=== PATIENT | female | born 1955 | race Caucasian/White ===

== ENCOUNTER → 2020-02-21 | Outpatient (CLI) | payer MEDICARE, OTHER ==
[2020-02-21 10:03] LABS: BILIRUBIN,TOTAL 0.6 MG/DL (0.1-1.0); CALCIUM 9.2 MG/DL (8.5-10.1); CREATININE SERUM 1.01 MG/DL (0.60-1.30); POTASSIUM 4.6 MMOL/L (3.6-5.0); TOTAL PROTEIN 6.9 GM/DL (6.4-8.2)
[2020-02-21 10:04] LABS: ALBUMIN 4.2 GM/DL (3.2-4.5)
== END ==
LOC: LAB FS 09:13
PROVIDERS: ATTEND Family Medicine
DX: I10 Essential (primary) hypertension (principal)
CPT/HCPCS: 36415; 80053; 80061

== ENCOUNTER → 2020-02-24 | Outpatient (CLI) | payer MEDICARE, OTHER | LOC: LAB FS 15:08 | PROVIDERS: ATTEND Family Medicine | DX: Z11.59 Encounter for screening for other viral diseases (principal); Z87.898 Personal history of other specified conditions; Z53.8 Procedure and treatment not carried out for other reasons | CPT/HCPCS: 36415; 80051; 86769 ==

== ENCOUNTER → 2021-01-04 | Outpatient (CLI) | payer MEDICARE, OTHER ==
[2021-01-04 09:05] LABS: SODIUM 140 MMOL/L (135-145)
[2021-01-04 09:06] LABS: ALANINE AMINOTRANSFERASE 19 U/L (0-55); ALBUMIN 4.1 GM/DL (3.2-4.5); ALKALINE PHOSPHATASE 92 U/L (40-136); BILIRUBIN,TOTAL 0.5 MG/DL (0.1-1.0); BUN/CREATININE RATIO 11; CALCIUM 8.9 MG/DL (8.5-10.1); CARBON DIOXIDE 26 MMOL/L (21-32); CHLORIDE 105 MMOL/L (98-107); CREATININE SERUM 0.92 MG/DL (0.60-1.30); GFR ESTIMATED > 60; GLUCOSE 126 MG/DL (70-105); POTASSIUM 4.3 MMOL/L (3.6-5.0); TOTAL PROTEIN 6.7 GM/DL (6.4-8.2)
[2021-01-04 17:51] LABS: TRIGLYCERIDES 108 MG/DL (<150); VLDL CHOLESTEROL 22 MG/DL (5-40)
[2021-01-04 17:56] LABS: CHOLESTEROL 157 MG/DL (< 200)
[2021-01-04 17:57] LABS: HDL CHOLESTEROL 46 MG/DL (40-60)
== END ==
LOC: LAB FS 08:08
PROVIDERS: ATTEND Family Medicine
DX: E78.2 Mixed hyperlipidemia (principal); R63.5 Abnormal weight gain
CPT/HCPCS: 36415; 80053; 80061; 83036; 84443

== ENCOUNTER 2021-03-04 05:42 | Outpatient (RCR) | payer MEDICARE, OTHER ==
[~2021-03-04] VITALS: Ht 162.6 cm; Wt 97.9 kg
[2021-03-04] MEDS ORDERED: ASPI-999 PO (12:05)
[2021-03-04] MEDS ORDERED: ATOR10TA66 PO (12:06)
[2021-03-04] MEDS ORDERED: METO-333 PO (12:06)
[2021-03-04] MEDS ORDERED: LORA10TA7 PO (12:06)
== END 2021-03-11 15:42 | disposition home or self-care (01) ==
LOC: PREOP 05:42
PROVIDERS: ATTEND Surgery
DX: Z01.818 Encounter for other preprocedural examination (principal)

== ENCOUNTER → 2021-03-12 | Outpatient (CLI) | payer MEDICARE, OTHER ==
[~2021-03-12] MED LIST: ASPI-999 PO; ATOR10TA66 PO; LORA10TA7 PO; METO-333 PO; SUCR1TAB36 PO
== END ==
LOC: LAB FS 10:08
PROVIDERS: ATTEND Surgery
DX: Z01.812 Encounter for preprocedural laboratory examination (principal); Z12.11 Encounter for screening for malignant neoplasm of colon; K29.70 Gastritis, unspecified, without bleeding; Z20.822 Contact with and (suspected) exposure to COVID-19
CPT/HCPCS: 87636

== ENCOUNTER 2021-03-15 12:19 | Day surgery (SDC) | payer MEDICARE, OTHER ==
[~2021-03-15] VITALS: Ht 162 cm; Wt 97.9 kg
[~2021-03-15 12:19] MED LIST changes: -SUCR1TAB36 PO
[2021-03-15 12:30] VITALS: BP 122/79
[2021-03-15] MEDS ORDERED: LACTATED RINGERS 1,000 ML IV ONE (12:36)
[2021-03-15] MEDS ORDERED: HURRICAINE EXT TUBE (BENZOCAINE) ONE (12:51)
[2021-03-15] MEDS ORDERED: MIDAZOLAM 2 MG/2 ML (VERSED) VIAL ONE (12:59)
[2021-03-15] MEDS ORDERED: proPOfol 200 MG/20 ML (DIPRIVAN) VIAL IV ONE (12:59)
[2021-03-15] MEDS ORDERED: HURRICAINE EXT TUBE (BENZOCAINE) XX ONE (13:00)
[2021-03-15] MEDS ORDERED: LACTATED RINGERS 1,000 ML IV STA (13:55)
[2021-03-15 14:10] VITALS: BP 155/70
--- NOTE | 2021-03-15 14:32 | Anesthesia-General Post-Op ---
MAC Patient Condition Mental Status/LOC: Same as Preop Cardiovascular: Satisfactory Nausea/Vomiting: Absent Respiratory: Satisfactory Pain: Controlled Complications: Absent Post Op Complications Complications None Follow Up Care/Instructions Patient Instructions None needed. Anesthesiology Discharge Order Discharge Order Patient is doing well, no complaints, stable vital signs, no apparent adverse anesthesia problems. RICH CRISTOBAL DO Mar 15, 2021 14:32
--- NOTE | 2021-03-15 14:39 | Progress Note-Post Operative ---
Post-Operative Progess Note Surgeon (s)/Donor Relations Officer (s) Surgeon ANKIT LOMBARDO DO Donor Relations Officer: none Pre-Operative Diagnosis +cologuard, gastritis Post-Operative Diagnosis Duodenitis Gastritis Hiatal Hernia Polyps diverticula int hemorrhoids Procedure & Operative Findings Date of Procedure 03/15/21 Procedure Performed/Findings PROCEDURE NOTE: After informed consent was obtained, the patient was brought to the endoscopy suite, placed in bed in left lateral decubitus position. She was administered IV sedation by the RUBBER EXTRUSION MACHINE OPERATOR who then monitored her vitals the entire time, heart rate, blood pressure and pulse ox, started with the EGD, placed the scope down the mouth through the esophagus into the stomach, took a picture, pushed into the duodenum. Duodenum had some inflammation so elected to do a biopsy here. She had some severe gastritis. Pulled back and did a biopsy of the antrum as well as biopsy of body of stomach, retroflexed the scope. She had a small hiatal hernia, pulled the scope into the GE junction, did a biopsy here and then pushed the scope back into the stomach and suctioned all the air out, then pulled the scope up the esophagus and out the mouth. Switched camera, switched gloves, went down below, started the colonoscopy. On the way in, noted inflammation, took a picture of this, then pushed all the way to the cecum about [address] in noted polyps in the transverse colon and did snare polypectomies. Then found more polyps in the ascending colon; also taken with hot snare. In the cecum right next to the appendiceal orifice was a large flat polyp; taken in pieces with hot snare maile ypectomy. Noted the ileo-cecal valve. Then slowly withdrew the scope insufflating to look circumferentially at the tan looking at the cecum, up the ascending colon then continued to the hepatic flexure, down the transverse colon, to the splenic flexure, into the descending colon. Found more polyps in the descending colon and snared these as well. Down into the sigmoid (performed another snare ) and finally into the rectum, retroflexed in the rectal vault, saw sone minimal internal hemorrhoids and took a picture.Then removed the scope. The patient tolerated the procedure. She was recovered in endoscopy suite. Anesthesia Type IV sedation by RUBBER EXTRUSION MACHINE OPERATOR Estimated Blood Loss Estimated blood loss (mL): scant Specimens/Packing Specimens Removed antral bx duodenal bx body of stomach bx cardia bx GE jxn bx Transverse colon polyp asc colon polyps cecal polyp desc colon polyp sigmoid polyp ANKIT LOMBARDO DO Mar 15, 2021 14:39
[2021-03-15] MEDS ORDERED: SUCR1TAB36 PO (14:41)
--- NOTE | 2021-03-15 14:42 | Endoscopy Discharge Instruct ---
Endo Procedure/Findings Findings 1.: Gastritis 2.: Hiatal Hernia 3.: Polyp 4.: Diverticulosis, Internal Hemorrhoids Discharge Instructions - Activity: You might feel a little sleepy until tomorrow. This is due to the medicine you received to relax you. Until tomorrow, you should: NOT drive a car, operate machinery or power tools. NOT drink any alcoholic beverages. NOT make any important decisions or sign importortant papers. Do not return to work until tomorrow, unless otherwise instructed. Resume previous activities tomorrow. Diet: Start by taking liquids. If you tolerate liquids, advance to solid food. 1.: Colonoscopy in 1 year 2.: EGD in 1 year Notify Physician - If you experience excessive bleeding, unusual abdominal pain, fever, or chest pain, contact your doctor immediately. ANKIT LOMBARDO DO Mar 15, 2021 14:41
[2021-03-15 14:51] VITALS: BP 135/78
[2021-03-15 14:53] VITALS: BP 135/78
== END 2021-03-15 15:05 | disposition home or self-care (01) ==
LOC: ENDO 12:19
PROVIDERS: ATTEND Surgery
DX: K29.50 Unspecified chronic gastritis without bleeding (principal); D12.3 Benign neoplasm of transverse colon; D12.0 Benign neoplasm of cecum; D12.2 Benign neoplasm of ascending colon; E78.5 Hyperlipidemia, unspecified; E66.9 Obesity, unspecified; K29.80 Duodenitis without bleeding; K63.5 Polyp of colon; K44.9 Diaphragmatic hernia without obstruction or gangrene; K57.30 Diverticulosis of large intestine without perforation or abscess without bleeding; K64.8 Other hemorrhoids; B96.81 Helicobacter pylori [H. pylori] as the cause of diseases classified elsewhere; F17.210 Nicotine dependence, cigarettes, uncomplicated; Z68.37 Body mass index [BMI] 37.0-37.9, adult; Z79.82 Long term (current) use of aspirin; Z79.899 Other long term (current) drug therapy; Z98.51 Tubal ligation status
CPT/HCPCS: 88305

== ENCOUNTER → 2021-04-21 | Outpatient (CLI) | payer MEDICARE, OTHER ==
[~2021-04-21] MED LIST changes: +SUCR1TAB36 PO
== END ==
LOC: LAB FS 11:00
PROVIDERS: ATTEND Surgery
DX: B96.81 Helicobacter pylori [H. pylori] as the cause of diseases classified elsewhere (principal)
CPT/HCPCS: 36415; 87338

== ENCOUNTER → 2021-05-26 | Outpatient (CLI) | payer MEDICARE, OTHER | LOC: LAB FS 08:59 | PROVIDERS: ATTEND Surgery | DX: B96.81 Helicobacter pylori [H. pylori] as the cause of diseases classified elsewhere (principal) | CPT/HCPCS: 36415; 87338 ==

== ENCOUNTER → 2021-09-01 | Outpatient (CLI) | payer MEDICARE, OTHER | LOC: LAB FS 10:24 | PROVIDERS: ATTEND Registered Nurse Emergency | DX: R22.40 Localized swelling, mass and lump, unspecified lower limb (principal) | CPT/HCPCS: 36415; 85379 ==

== ENCOUNTER → 2021-09-03 | Outpatient (CLI) | payer MEDICARE, OTHER ==
--- NOTE | 2021-09-03 11:42 | Diagnostic Imaging Report ---
INDICATION: Fall, right knee pain 3 views of the right knee show no fracture, dislocation or other acute bony abnormality. There is joint fluid present. IMPRESSION: Joint effusion. No acute bony abnormality is seen. Dictated by: Dictated on workstation # [id number]
== END ==
LOC: RAD FS 11:16
PROVIDERS: ATTEND Registered Nurse Emergency
DX: M25.561 Pain in right knee (principal); M25.461 Effusion, right knee; W19.XXXA Unspecified fall, initial encounter
CPT/HCPCS: 73562

== ENCOUNTER → 2021-09-09 | Outpatient (CLI) | payer MEDICARE, OTHER | LOC: ORTHO 14:43 | PROVIDERS: ATTEND Orthopaedic Surgery | DX: M25.561 Pain in right knee (principal); E78.5 Hyperlipidemia, unspecified | CPT/HCPCS: 20610 ==

== ENCOUNTER → 2022-02-16 | Outpatient (CLI) | payer MEDICARE, OTHER ==
[2022-02-16 10:16] LABS: ALBUMIN 4.1 GM/DL (3.2-4.5); BILIRUBIN,TOTAL 0.4 MG/DL (0.1-1.0); CALCIUM 9.3 MG/DL (8.5-10.1); CREATININE SERUM 0.88 MG/DL (0.60-1.30); POTASSIUM 4.3 MMOL/L (3.6-5.0)
== END ==
LOC: LAB FS 08:35
PROVIDERS: ATTEND Family Medicine
DX: Z00.00 Encounter for general adult medical examination without abnormal findings (principal); Z12.39 Encounter for other screening for malignant neoplasm of breast; E78.5 Hyperlipidemia, unspecified; J30.2 Other seasonal allergic rhinitis
CPT/HCPCS: 36415; 80053; 80061

== ENCOUNTER 2022-05-18 05:35 | Outpatient (CLI) | payer MEDICARE, OTHER ==
[~2022-05-18] VITALS: Ht 162.6 cm; Wt 97.1 kg
== END 2022-05-18 09:52 | disposition home or self-care (01) ==
LOC: PREOP 05:35
PROVIDERS: ATTEND Surgery
DX: Z01.818 Encounter for other preprocedural examination (principal)

== ENCOUNTER 2022-05-30 06:45 | Day surgery (SDC) | payer MEDICARE, OTHER ==
[~2022-05-30] VITALS: Ht 162.6 cm; Wt 97.1 kg
[2022-05-30] MEDS ORDERED: LACTATED RINGERS 1,000 ML IV STA (07:05)
[2022-05-30 07:12] VITALS: BP 135/82
[2022-05-30] MEDS ORDERED: PROPOFOL INJECTION 50 ML IV ONE (07:13)
[2022-05-30] MEDS ORDERED: MIDAZOLAM 2 MG/2 ML (VERSED) VIAL ONE (07:13)
[2022-05-30] MEDS ORDERED: HURRICAINE EXT TUBE (BENZOCAINE) XX PRN (07:15)
[2022-05-30] MEDS ORDERED: proPOfol 200 MG/20 ML (DIPRIVAN) VIAL IV ONE (08:51)
[2022-05-30] MEDS ORDERED: LABETALOL HCL 20 MG/4 ML VIAL ONE (08:59)
[2022-05-30 09:15] VITALS: BP 183/94
[2022-05-30 09:20] VITALS: BP 180/83
--- NOTE | 2022-05-30 09:27 | Progress Note-Post Operative ---
Post-Operative Progess Note Surgeon (s)/[facility] (s) Surgeon ANKIT LOMBARDO DO [facility]: Jessie Warren, MSIII Pre-Operative Diagnosis Large Polyp, Hx of Agudelo's Post-Operative Diagnosis Gastritis with bleed Gastric ulcer Hiatal hernia Polyps diverticula int hemorrhoids Procedure & Operative Findings Date of Procedure 05/30/22 Procedure Performed/Findings EGD with Bx Colon with snare Colon with hot bx PROCEDURE NOTE: After informed consent was obtained, the patient was brought to the endoscopy suite, placed in bed in left lateral decubitus position. She was administered IV sedation by the CREDIT VERIFIER who then monitored vitals the entire time, heart rate, blood pressure and pulse ox and the scope was inserted down the mouth through the esophagus into the stomach. Pushed past the antrum and into the duodenum; duodenum had inflammtion and did a biopsy here. Pulled back and noted gastritis plus what looked like ulcers; took a picture and did a biopsy of the antrum. Then retroflexed the scope, saw small 0.5cm hiatal hernia, took a picture of this. Also saw what looked like polyp vs ulcer and did biopsy of this in the body/ cardia of the stomach. Then pulled the scope into the GE junction, took a picture of and did a biopsy of the GE junction. Pushed the scope back into the stomach, suctioned all the air out of the stomach. At this point pulled the scope up the esophagus and out the mouth. Switched camera, switched gloves, went down below and started the colonoscopy. Pushed all the way into about 150 cm to get all the way to cecum, took a picture of the appendiceal orifice and noted the ileocecal valve. On the way in saw diverticula and took a picture of them. Also, found a polyp in the transverse colon and did a snare polypectomy. In the ascendind colon saw a large flat polyp that was just behind a fold; elected to do a hot biopsy of this, would not be able to snare it. I also saw another polyp, but had a very hard time pushing the biopsy forceps in and could not remove the polyp; picture taken. Then slowly withdrew the scope, insufflating to look circumferentially at the tan starting in the cecum, up the ascending colon to the hepatic flexure, then down the transverse colon to the splenic flexure and into the descending colon. Found more polyps in the descending colon and removed them with hot bx. Down into the sigmoid colon where I found another polyp, removed with hot biopsy. Finally into the rectum where I found at least 3 more polyps that I removed with biopsy and another with snare. I retroflexed in the rectal vault, saw some minimal internal hemorrhoids and took a picture of this. The patient tolerated the procedure and she recovered in the endoscopy suite. Recommended for repeat colonoscopy in 1 year Anesthesia Type IV sedation by CREDIT VERIFIER Estimated Blood Loss Estimated blood loss (mL): scant Specimens/Packing Specimens Removed duodenal bx antral bx body of stomach bx GE jxn bx Transverse colon polyp asc colon polyp desc colon polyp sigmoid polyp rectal polyps ANKIT LOMBARDO DO May 30, 2022 09:27
[2022-05-30] MEDS ORDERED: PANT40TA2 PO (09:29)
[2022-05-30] MEDS ORDERED: SUCR1TAB36 PO (09:29)
--- NOTE | 2022-05-30 09:29 | Endoscopy Discharge Instruct ---
Endo Procedure/Findings Findings 1.: Hiatal Hernia, Gastric Ulcer, Gastritis 2.: Polyp 3.: Diverticulosis 4.: Internal Hemorrhoids Discharge Instructions - Activity: You might feel a little sleepy until tomorrow. This is due to the medicine you received to relax you. Until tomorrow, you should: NOT drive a car, operate machinery or power tools. NOT drink any alcoholic beverages. NOT make any important decisions or sign importortant papers. Do not return to work until tomorrow, unless otherwise instructed. Resume previous activities tomorrow. Diet: Start by taking liquids. If you tolerate liquids, advance to solid food. 1.: EGD in 1 year 2.: Colonoscopy in 1 year Notify Physician - If you experience excessive bleeding, unusual abdominal pain, fever, or chest pain, contact your doctor immediately. ANKIT LOMBARDO DO May 30, 2022 09:28
[2022-05-30 09:50] VITALS: BP 121/73
--- NOTE | 2022-05-30 12:20 | Anesthesia-General Post-Op ---
MAC Patient Condition Mental Status/LOC: Same as Preop Cardiovascular: Satisfactory Nausea/Vomiting: Absent Respiratory: Satisfactory Pain: Controlled Complications: Absent Post Op Complications Complications None Follow Up Care/Instructions Patient Instructions None needed. Anesthesiology Discharge Order Discharge Order Patient is doing well, no complaints, stable vital signs, no apparent adverse anesthesia problems. No complications reported per nursing. YANIRA SAENZ CRNA May 30, 2022 12:20
== END 2022-05-30 10:00 | disposition home or self-care (01) ==
LOC: ENDO 06:45
PROVIDERS: ATTEND Surgery
DX: D12.2 Benign neoplasm of ascending colon (principal); D12.3 Benign neoplasm of transverse colon; D12.5 Benign neoplasm of sigmoid colon; K62.1 Rectal polyp; K63.5 Polyp of colon; K31.89 Other diseases of stomach and duodenum; K20.90 Esophagitis, unspecified without bleeding; K29.60 Other gastritis without bleeding; K25.9 Gastric ulcer, unspecified as acute or chronic, without hemorrhage or perforation; K44.9 Diaphragmatic hernia without obstruction or gangrene; K57.30 Diverticulosis of large intestine without perforation or abscess without bleeding; K64.8 Other hemorrhoids; F17.210 Nicotine dependence, cigarettes, uncomplicated
CPT/HCPCS: 88305

== ENCOUNTER → 2022-06-07 | Outpatient (CLI) | payer MEDICARE, OTHER ==
[~2022-06-07] MED LIST changes: +PANT40TA2 PO
== END ==
LOC: ORTHO 09:15
PROVIDERS: ATTEND Orthopaedic Surgery
DX: M25.562 Pain in left knee (principal)
CPT/HCPCS: 20610